=== PATIENT | female | born 1955 | race African-American/Black ===

== ENCOUNTER 2017-06-25 11:18 | Observation (INO) ==
[2017-06-25] MEDS ORDERED: ASPIRIN 325 MG TABLET PO STA (11:45)
[2017-06-25] MEDS ORDERED: ENOXAPARIN 100 MG/ML SYRINGE SUBCUT STA (11:45)
[2017-06-25] MEDS ORDERED: ENOXAPARIN 120 MG/0.8 ML SYRINGE SUBCUT ONE (12:05)
[2017-06-25] MEDS ORDERED: ASPIRIN 325 MG TABLET ONE (12:05)
[2017-06-25] MEDS ORDERED: ENOXAPARIN 100 MG/ML SYRINGE SUBCUT ONE (12:09)
[2017-06-25 12:12] LABS: Basophils % 0.3 % (0.0-0.8); Eosinophils % 0.3 % (0.00-10.9); Hematocrit 40.9 VOL% (35.7-47.0); Immature Granulocytes % 0.4 %; Immature Granulocytes Absolute 0.03 #; Lymphocytes % 29.4 % (21.3-54.2); Mean Corpuscular HGB Conc 31.8 GM/DL (32-36); Mean Corpuscular Hemoglobin 27 PG (27-34); Mean Platelet Volume 11.3 FL (9.6-12.0); Monocytes # 0.4 10*3/uL (0.11-0.8); Monocytes % 5.4 % (1.7-12.7); Neutrophils # 4.3 10*3/uL (1.4-7.4); Neutrophils % 64.2 % (38.7-73.9); Platelet Count 200 T/CUMM (130-400); Red Blood Count 4.81 MC/CUMM (3.8-5.5); Red Cell Distribution Width 14.4 % (9.3-17.3); White Blood Count 6.7 T/CUMM (4-12)
[2017-06-25 12:37] LABS: Alanine Aminotransferase 16 U/L (13-56); Albumin 3.6 G/DL (3.4-5.0); Alkaline Phosphatase 73 U/L (45-117); Aspartate Amino Transferase 14 U/L (0-37); Bilirubin,Total < 0.39 MG/DL (0.2-1.0); Blood Urea Nitrogen 15 MG/DL (7-18); Calcium 9.1 MG/DL (8.5-10.1); Glucose 139 MG/DL (74-106); Osmolality,Calculated 279.5 MOS/KG (273-304); Potassium 4.8 MMOL/L (3.5-5.1); Sodium 139 MMOL/L (136-145)
[2017-06-25] MEDS ORDERED: ONDANSETRON 4 MG/2 ML VIAL IV PRN (13:31)
[2017-06-25] MEDS ORDERED: LACTULOSE 20 GM/30 ML UDCUP PO PRN (13:31)
[2017-06-25] MEDS ORDERED: guaiFENesin/DM ER 600-30 MG TABLET PO PRN (13:31)
[2017-06-25] MEDS ORDERED: MAGNESIUM SULF RIDER 4 GM in PREMIX 1 EACH IV PRN (13:31)
[2017-06-25] MEDS ORDERED: diphenhydrAMINE CAP 25 MG CAPSULE PO PRN (13:31)
[2017-06-25] MEDS ORDERED: DOCUSATE SODIUM 100 MG CAPSULE PO PRN (13:31)
[2017-06-25] MEDS ORDERED: MAGNESIUM SULF RIDER 2 GM in PREMIX 1 EACH IV PRN (13:31)
[2017-06-25] MEDS ORDERED: POTASSIUM CHLORIDE 20 MEQ TABLET PO PRN (13:31)
[2017-06-25] MEDS ORDERED: ZALEPLON 5 MG CAPSULE PO PRN (13:31)
[2017-06-25 17:19] LABS: Troponin I Only < 0.015 NG/ML (0.00-0.045)
[2017-06-25] MEDS: ACETAMINOPHEN 325 MG TABLET PO PRN (18:43)
[2017-06-25 20:15] LABS: Troponin I Only < 0.015 NG/ML (0.00-0.045)
[2017-06-25] MEDS ORDERED: ATORVASTATIN 20 MG TABLET PO SCH (21:00)
[2017-06-26 04:50] LABS: Basophils % 0.5 % (0.0-0.8); Eosinophils % 0.7 % (0.00-10.9); Hematocrit 39.2 VOL% (35.7-47.0); Immature Granulocytes % 0.4 %; Immature Granulocytes Absolute 0.02 #; Lymphocytes # 2.7 10*3/uL (1.4-4.0); Lymphocytes % 47.3 % (21.3-54.2); Mean Corpuscular HGB Conc 33.2 GM/DL (32-36); Mean Corpuscular Hemoglobin 28 PG (27-34); Mean Corpuscular Volume 82.9 FL (87-102); Mean Platelet Volume 11.2 FL (9.6-12.0); Monocytes # 0.4 10*3/uL (0.11-0.8); Neutrophils # 2.5 10*3/uL (1.4-7.4); Neutrophils % 44.1 % (38.7-73.9); Platelet Count 195 T/CUMM (130-400); Red Blood Count 4.73 MC/CUMM (3.8-5.5); Red Cell Distribution Width 14.4 % (9.3-17.3); White Blood Count 5.6 T/CUMM (4-12)
[2017-06-26 05:20] LABS: Calcium 9.1 MG/DL (8.5-10.1); Osmolality,Calculated 282.3 MOS/KG (273-304); Potassium 5.3 MMOL/L (3.5-5.1); Risk Ratio 5.15; VLDL CHOLESTEROL 22.6 MG/DL
[2017-06-26] MEDS: LEVOTHYROXINE 25 MCG TABLET PO SCH ×2 (07:05→08:34)
[2017-06-26 08:05] VITALS: BP 149/83
[2017-06-26] MEDS: ACETAMINOPHEN 325 MG TABLET PO PRN (08:06)
[2017-06-26] MEDS ORDERED: PANTOPRAZOLE 40 MG TABLET PO SCH (09:00)
[2017-06-26] MEDS ORDERED: amLODIPine 10 MG TABLET PO SCH (09:00)
[2017-06-26] MEDS ORDERED: LISINOPRIL 20 MG TABLET PO SCH (09:00)
[2017-06-26] MEDS ORDERED: ASPIRIN EC 81 MG TABLET PO SCH (09:00)
== END 2017-06-26 11:29 | disposition home or self-care (01) ==
LOC: N.ED 11:18 → N.EDINP 11:18 → N.TELES 16:12
PROVIDERS: ADMIT Internal Medicine Cardiovascular Disease; ATTEND Internal Medicine Cardiovascular Disease

== ENCOUNTER 2017-09-21 15:19 | Inpatient (IN) ==
[2017-09-21 16:14] LABS: Basophils % 0.3 % (0.0-0.8); Eosinophils % 0.5 % (0.00-10.9); Hematocrit 40.8 VOL% (35.7-47.0); Hemoglobin 13.1 GM/DL (12.0-16.0); Immature Granulocytes % 0.4 %; Immature Granulocytes Absolute 0.03 #; Lymphocytes # 2.6 10*3/uL (1.4-4.0); Lymphocytes % 33.3 % (21.3-54.2); Mean Corpuscular HGB Conc 32.1 GM/DL (32-36); Mean Corpuscular Hemoglobin 27 PG (27-34); Mean Corpuscular Volume 84.1 FL (87-102); Monocytes # 0.5 10*3/uL (0.11-0.8); Monocytes % 5.8 % (1.7-12.7); Neutrophils # 4.6 10*3/uL (1.4-7.4); Neutrophils % 59.7 % (38.7-73.9); Platelet Count 257 T/CUMM (130-400); Red Blood Count 4.85 MC/CUMM (3.8-5.5); Red Cell Distribution Width 14.7 % (9.3-17.3); White Blood Count 7.7 T/CUMM (4-12)
[2017-09-21 16:46] LABS: Alanine Aminotransferase 23 U/L (13-56); Albumin 3.6 G/DL (3.4-5.0); Alkaline Phosphatase 82 U/L (45-117); Aspartate Amino Transferase 15 U/L (0-37); Bilirubin,Total < 0.39 MG/DL (0.2-1.0); Blood Urea Nitrogen 14 MG/DL (7-18); Calcium 8.9 MG/DL (8.5-10.1); Glucose 102 MG/DL (74-106); Osmolality,Calculated 281.3 MOS/KG (273-304); Potassium 4.1 MMOL/L (3.5-5.1); Sodium 141 MMOL/L (136-145); Total Protein 7.8 G/DL (6.4-8.3)
[2017-09-21] MEDS ORDERED: PANTOPRAZOLE 40 MG VIAL IV STA (17:58)
[2017-09-21] MEDS ORDERED: MORPHINE 4 MG/1 ML VIAL IV STA (17:58)
[2017-09-21] MEDS ORDERED: ONDANSETRON 4 MG/2 ML VIAL IV STA (17:58)
[2017-09-21] MEDS ORDERED: ALUM/MAG/SIMETH/LIDO VISC 1:1 30 ML BOTTLE PO STA (17:58)
[2017-09-21] MEDS ORDERED: ASPIRIN 325 MG TABLET PO STA (17:58)
[2017-09-21] MEDS ORDERED: NITROGLYCERIN 2% OINT 1 INCH/GM PACK TOP STA (17:58)
[2017-09-21] MEDS ORDERED: ENOXAPARIN 100 MG/ML SYRINGE SUBCUT STA (18:06)
[2017-09-21] MEDS ORDERED: ONDANSETRON 4 MG/2 ML VIAL IV PRN (22:46)
[2017-09-21] MEDS ORDERED: MAGNESIUM SULF RIDER 4 GM in PREMIX 1 EACH IV PRN (22:46)
[2017-09-21] MEDS ORDERED: SODIUM CHLORIDE 0.9% 1,000 ML IV SCH (22:46)
[2017-09-21] MEDS ORDERED: ATORVASTATIN 20 MG TABLET PO SCH (22:46)
[2017-09-21] MEDS ORDERED: cloNIDine 0.1 MG TABLET PO PRN (22:46)
[2017-09-21] MEDS ORDERED: MORPHINE 4 MG/1 ML VIAL IV PRN (22:46)
[2017-09-21] MEDS ORDERED: MAGNESIUM SULF RIDER 2 GM in PREMIX 1 EACH IV PRN (22:46)
[2017-09-21] MEDS ORDERED: ONDANSETRON ODT 4 MG TABLET PO PRN (22:46)
[2017-09-21] MEDS ORDERED: ENOXAPARIN 100 MG/ML SYRINGE SUBCUT SCH (23:00)
[2017-09-22] MEDS: NITROGLYCERIN 2% OINT 1 INCH/GM PACK TOP SCH ×2 (00:17→05:24)
[2017-09-22 01:54] LABS: Basophils % 0.3 % (0.0-0.8); Eosinophils # 0.1 10*3/uL (0.0-0.87); Hemoglobin 11.3 GM/DL (12.0-16.0); Immature Granulocytes % 0.3 %; Immature Granulocytes Absolute 0.02 #; Lymphocytes # 2.4 10*3/uL (1.4-4.0); Lymphocytes % 39.2 % (21.3-54.2); Mean Corpuscular HGB Conc 32.3 GM/DL (32-36); Mean Corpuscular Hemoglobin 27 PG (27-34); Mean Corpuscular Volume 84.1 FL (87-102); Mean Platelet Volume 10.5 FL (9.6-12.0); Monocytes # 0.5 10*3/uL (0.11-0.8); Monocytes % 7.6 % (1.7-12.7); Neutrophils # 3.2 10*3/uL (1.4-7.4); Neutrophils % 51.6 % (38.7-73.9); Platelet Count 234 T/CUMM (130-400); Red Blood Count 4.16 MC/CUMM (3.8-5.5); Red Cell Distribution Width 14.8 % (9.3-17.3); White Blood Count 6.2 T/CUMM (4-12)
[2017-09-22 02:12] LABS: Albumin 2.7 G/DL (3.4-5.0); Bilirubin,Total 0.4 MG/DL (0.2-1.0); Calcium 8.6 MG/DL (8.5-10.1); Osmolality,Calculated 282.1 MOS/KG (273-304); Potassium 3.9 MMOL/L (3.5-5.1); Risk Ratio 3.96; Thyroid Stimulating Hormone 2.7 uIU/ml (0.358-3.74); Total Protein 6.5 G/DL (6.4-8.3); VLDL CHOLESTEROL 14.6 MG/DL
[2017-09-22] MEDS: LEVOTHYROXINE 25 MCG TABLET PO SCH ×2 (05:24→12:11)
[2017-09-22] MEDS ORDERED: PANTOPRAZOLE 40 MG TABLET PO SCH (09:00)
[2017-09-22] MEDS ORDERED: ASPIRIN EC 81 MG TABLET PO SCH ×2 (09:00)
[2017-09-22] MEDS ORDERED: LISINOPRIL 20 MG TABLET PO SCH (09:00)
[2017-09-22] MEDS ORDERED: CHOLECALCIFEROL 1,000 UNIT TABLET PO SCH (09:00)
[2017-09-22] MEDS ORDERED: ESCITALOPRAM 10 MG TABLET PO SCH ×2 (09:00→11:30)
[2017-09-22] MEDS ORDERED: ASCORBIC ACID 500 MG TABLET PO SCH (09:00)
[2017-09-22] MEDS ORDERED: OLMESARTAN 20 MG TABLET PO SCH (11:30)
[2017-09-22 11:52] VITALS: BP 147/84
== END 2017-09-22 15:56 | disposition home or self-care (01) | DRG 880 ==
LOC: N.ED 15:19 → N.EDINP 18:09 → N.TELES 20:47
PROVIDERS: ADMIT Internal Medicine Cardiovascular Disease; ATTEND Internal Medicine Cardiovascular Disease

== ENCOUNTER 2019-12-15 09:22 | Observation (INO) ==
[2019-12-15] MEDS ORDERED: ASPIRIN 325 MG TABLET PO STA (09:52)
[2019-12-15] MEDS ORDERED: ONDANSETRON 4 MG/2 ML VIAL IV PRN (09:52)
[2019-12-15] MEDS ORDERED: NITROGLYCERIN 2% OINT 1 INCH/GM PACK TOP STA (09:52)
[2019-12-15] MEDS ORDERED: ENOXAPARIN 100 MG/ML SYRINGE SUBCUT STA (09:52)
[2019-12-15] MEDS ORDERED: MORPHINE 4 MG/1 ML VIAL IV PRN (09:52)
[2019-12-15 10:03] LABS: Basophils % 0.3 % (0.0-0.8); Eosinophils # 0.1 10*3/uL (0.0-0.87); Eosinophils % 0.9 % (0.00-10.9); Hematocrit 42.3 VOL% (35.7-47.0); Hemoglobin 13.3 GM/DL (12.0-16.0); Immature Granulocytes % 0.5 %; Immature Granulocytes Absolute 0.03 #; Lymphocytes # 2.5 10*3/uL (1.4-4.0); Lymphocytes % 38.4 % (21.3-54.2); Mean Corpuscular HGB Conc 31.4 GM/DL (32-36); Mean Platelet Volume 10.9 FL (9.6-12.0); Monocytes % 6.2 % (1.7-12.7); Neutrophils % 53.7 % (38.7-73.9); Platelet Count 205 T/CUMM (130-400); Red Blood Count 4.92 MC/CUMM (3.8-5.5); Red Cell Distribution Width 15.3 % (9.3-17.3); White Blood Count 6.6 T/CUMM (4-12)
[2019-12-15 10:08] LABS: Troponin I < 0.015 NG/ML (0.00-0.045)
[2019-12-15 10:10] LABS: PT Patient Result 10.8 SECS (9.8-11.9); Partial Thromboplastin Time 30.6 SECS (23.9-33.8)
[2019-12-15 10:19] LABS: Hypochromasia 1+; Platelet Estimate Adequate
[2019-12-15 10:23] LABS: Albumin 3.5 G/DL (3.4-5.0); Bilirubin,Total 0.4 MG/DL (0.2-1.0); Calcium 9.3 MG/DL (8.5-10.1); Osmolality,Calculated 280.4 MOS/KG (273-304); Total Protein 7.4 G/DL (6.4-8.3)
[2019-12-15] MEDS ORDERED: ENOXAPARIN 120 MG/0.8 ML SYRINGE SUBCUT ONE (10:50)
[2019-12-15] MEDS ORDERED: hydrALAZINE 20 MG/1 ML VIAL IV STA (11:47)
[2019-12-15 12:14] LABS: Bacteria,Urine Moderate /HPF (Few); Bilirubin,Urine Negative (Negative); Blood, Urine Negative (Negative); Glucose,Urine (UA) Negative (Negative); Ketones,Urine Negative (Negative); Mucus,Urine Occasional /LPF (Occasional); Nitrite,Urine Negative (Negative); Protein,Urine Negative; RBC,Urine 1 /HPF (0-4); Squamous Epithelial Cell,Urine Occasional /HPF (0-10); Urine Appearance CLEAR (Clear); Urine Color Straw (Yellow); Urine Specific Gravity 1.005 (1.001-1.035); Urine Urobilinogen < 2.0 EU/DL (0.2-1.0); WBC,Urine <1 /HPF (0-6)
[2019-12-15 12:28] LABS: Barbiturates Screen,Urine Negative (Negative); Benzodiazepines Screen,Urine Negative (Negative); Cannabinoid Screen,Urine Negative (Negative); Opiate Screen,Urine Negative (Negative); Phencyclidine Screen,Urine Negative (Negative)
[2019-12-15] MEDS ORDERED: NITROGLYCERIN SL 0.4 MG TABLET SL PRN (13:23)
[2019-12-15] MEDS ORDERED: ALUM/MAG/SIMETH/LIDO VISC 1:1 30 ML BOTTLE PO STA (13:23)
[2019-12-15] MEDS: carvediloL 12.5 MG TABLET PO SCH (20:54)
[2019-12-15] MEDS: ATORVASTATIN 20 MG TABLET PO SCH (20:54)
[2019-12-15] MEDS: traZODone 50 MG TABLET PO SCH (20:58)
[2019-12-15] MEDS: NEOMYC/POLYMYX/DEXAMETH OPH SUSP 5 ML BOTTLE BOTH EYES SCH (20:58)
[2019-12-16] MEDS: LEVOTHYROXINE 88 MCG TABLET PO SCH (06:38)
[2019-12-16] MEDS ORDERED: LORazepam 2 MG/1 ML VIAL IV ONE (07:15)
[2019-12-16 07:35] LABS: Basophils % 0.5 % (0.0-0.8); Eosinophils # 0.1 10*3/uL (0.0-0.87); Eosinophils % 0.9 % (0.00-10.9); Hematocrit 43.1 VOL% (35.7-47.0); Hemoglobin 13.6 GM/DL (12.0-16.0); Immature Granulocytes % 0.2 %; Immature Granulocytes Absolute 0.01 #; Lymphocytes # 2.5 10*3/uL (1.4-4.0); Lymphocytes % 38.8 % (21.3-54.2); Mean Corpuscular HGB Conc 31.6 GM/DL (32-36); Mean Corpuscular Volume 85.3 FL (87-102); Mean Platelet Volume 10.6 FL (9.6-12.0); Monocytes % 8.1 % (1.7-12.7); Neutrophils % 51.5 % (38.7-73.9); Platelet Count 211 T/CUMM (130-400); Red Blood Count 5.05 MC/CUMM (3.8-5.5); Red Cell Distribution Width 15.4 % (9.3-17.3); White Blood Count 6.5 T/CUMM (4-12)
[2019-12-16 07:49] LABS: Calcium 9.7 MG/DL (8.5-10.1); Osmolality,Calculated 278.5 MOS/KG (273-304)
[2019-12-16] MEDS: NEOMYC/POLYMYX/DEXAMETH OPH SUSP 5 ML BOTTLE BOTH EYES SCH ×2 (09:00→20:59)
[2019-12-16] MEDS: carvediloL 12.5 MG TABLET PO SCH ×2 (09:00→20:59)
[2019-12-16] MEDS ORDERED: POTASSIUM CHLORIDE RIDER 10 MEQ in PREMIX 1 EACH IV PRN (13:03)
[2019-12-16] MEDS ORDERED: MAGNESIUM SULF RIDER 2 GM in PREMIX 1 EACH IV PRN (13:03)
[2019-12-16] MEDS ORDERED: hydrALAZINE 20 MG/1 ML VIAL IV PRN (13:09)
[2019-12-16] MEDS: ASPIRIN EC 81 MG TABLET PO SCH (16:30)
[2019-12-16] MEDS: FERROUS SULFATE 325 MG TABLET PO SCH (16:30)
[2019-12-16] MEDS: SERTRALINE 100 MG TABLET PO SCH (16:30)
[2019-12-16] MEDS: OLMESARTAN 20 MG TABLET PO SCH (16:31)
[2019-12-16] MEDS: CHOLECALCIFEROL 400 UNIT TABLET PO SCH (16:31)
[2019-12-16] MEDS: PANTOPRAZOLE 40 MG TABLET PO SCH (18:05)
[2019-12-16] MEDS: traZODone 50 MG TABLET PO SCH (20:58)
[2019-12-16] MEDS: ATORVASTATIN 20 MG TABLET PO SCH (20:58)
[2019-12-16] MEDS: POLYETHYLENE GLYCOL POWDER 17 GM PACK PO SCH (20:59)
[2019-12-17] MEDS: LEVOTHYROXINE 88 MCG TABLET PO SCH (06:19)
[2019-12-17 07:24] LABS: Basophils % 0.3 % (0.0-0.8); Eosinophils % 0.4 % (0.00-10.9); Hematocrit 42.9 VOL% (35.7-47.0); Hemoglobin 13.6 GM/DL (12.0-16.0); Immature Granulocytes % 0.3 %; Immature Granulocytes Absolute 0.02 #; Lymphocytes # 2.5 10*3/uL (1.4-4.0); Lymphocytes % 32.1 % (21.3-54.2); Mean Corpuscular HGB Conc 31.7 GM/DL (32-36); Mean Platelet Volume 11.3 FL (9.6-12.0); Monocytes % 5.4 % (1.7-12.7); Neutrophils % 61.5 % (38.7-73.9); Platelet Count 228 T/CUMM (130-400); Red Blood Count 5.05 MC/CUMM (3.8-5.5); Red Cell Distribution Width 15.5 % (9.3-17.3); White Blood Count 7.8 T/CUMM (4-12)
[2019-12-17 07:44] LABS: Calcium 9.6 MG/DL (8.5-10.1); Osmolality,Calculated 282.5 MOS/KG (273-304)
[2019-12-17 07:49] LABS: Troponin I < 0.015 NG/ML (0.00-0.045)
[2019-12-17] MEDS: ASPIRIN EC 81 MG TABLET PO SCH (08:51)
[2019-12-17] MEDS: carvediloL 12.5 MG TABLET PO SCH ×2 (08:51→20:36)
[2019-12-17] MEDS: OLMESARTAN 20 MG TABLET PO SCH (08:51)
[2019-12-17] MEDS: FERROUS SULFATE 325 MG TABLET PO SCH (08:58)
[2019-12-17] MEDS: POLYETHYLENE GLYCOL POWDER 17 GM PACK PO SCH ×2 (08:58→20:37)
[2019-12-17] MEDS: SERTRALINE 100 MG TABLET PO SCH (08:59)
[2019-12-17] MEDS: CHOLECALCIFEROL 400 UNIT TABLET PO SCH (08:59)
[2019-12-17] MEDS ORDERED: SODIUM CHLORIDE 0.45% 1,000 ML IV SCH (09:00)
[2019-12-17] MEDS ORDERED: HEPARIN/NACL 0.9% 2 UNITS/ML 1,000 ML IV ONE (11:26)
[2019-12-17] MEDS ORDERED: VERAPAMIL 5 MG/2 ML VIAL ONE (11:26)
[2019-12-17] MEDS ORDERED: NITROGLYCERIN DRIP 50 MG/250 ML BOTTLE IV ONE (11:26)
[2019-12-17] MEDS ORDERED: LIDOCAINE 1% 20 ML VIAL ONE (11:26)
[2019-12-17] MEDS ORDERED: DIAZEPAM 5 MG TABLET PO ONE (11:30)
[2019-12-17] MEDS ORDERED: diphenhydrAMINE CAP 25 MG CAPSULE PO ONE (11:30)
[2019-12-17] MEDS: NEOMYC/POLYMYX/DEXAMETH OPH SUSP 5 ML BOTTLE BOTH EYES SCH ×2 (11:32→20:36)
[2019-12-17] MEDS ORDERED: HYDROmorphone 2 MG/1 ML VIAL ONE (11:46)
[2019-12-17] MEDS ORDERED: MIDAZOLAM 2 MG/2 ML VIAL ONE (11:46)
[2019-12-17] MEDS: PANTOPRAZOLE 40 MG TABLET PO SCH (17:06)
[2019-12-17 20:07] VITALS: BP 144/65
[2019-12-17] MEDS: ATORVASTATIN 20 MG TABLET PO SCH (20:36)
[2019-12-17] MEDS: traZODone 50 MG TABLET PO SCH (20:36)
== END 2019-12-17 21:05 | disposition hospice, home (50) ==
LOC: N.ED 09:22 → N.EDINP 09:22 → N.TELEN 15:12
PROVIDERS: ADMIT Internal Medicine; ATTEND Internal Medicine
PROC: CLCCHCL (ICD-10-PCS; 2019-12-17 12:15)